=== PATIENT | male | born 1935 | race Caucasian/White ===

== ENCOUNTER → 2016-06-13 10:21 | Outpatient (CLI) | payer MEDICARE, OTHER ==
[2013-09-06 01:06] VITALS: BMI 28.5
[~2016-06-13 10:21] MED LIST: ARICEPT10 MG PO; ARICEPT5 MG PO; ATARAX 25 MG TA25 MG PO; BAYER CHEWABLE81 MG PO; CANCER MED INJ; COREG12.5 MG PO; HYZAAR 50-12.51 TAB PO; LANOXIN125 MCG PO; NAMENDA10 MG PO; NORCO 5/325 TAB1 TA1 PO; PERCOCET 5-3251 TAB PO; PROZAC10 MG PO; VITAMIN B-1000 MCG/M IM
--- NOTE | 2016-06-27 08:17 | EC ---
PATIENT:RHODA HEBERT DATE OF SERVICE: 06/13/16 SEX: M MEDICAL RECORD: [id number] DATE OF : 33 LOCATION:[facility] AGE OF PATIENT: 80 ADMISSION DATE: 06/13/16 REFERRING PHYSICIAN: INTERPRETING PHYSICIAN: TEJ BONNER M.D. ECHOCARDIOGRAM REPORT ECHO CHARGES 4 ECHO COMPLETE CLINICAL DIAGNOSIS: ASSESS FOR CARDIOMYOPATHY / DUE TO RECENT LOWER EXT EDEMA ECHOCARDIOGRAPHIC MEASUREMENTS (adult normal given) AC root (d.<3.7cm) 4.6 LV Septum d (<1.2 cm> 1.8 Valve Excursion 1.2 LV Septum (systole) 1.9 Left Atria (s.<4.0cm> 4.3 LVPW d(<1.2cm) 1.8 RV (d.<2.3cm) 4.2 LVPW (sytole) 2.1 LV diastole(<5.6CM) 5.8 MV E-F(>70mm/sec) LV systole 4.5 LVOT Diameter 1.2 MV exc.(>10mm) 1.8 Est.ejection fraction (50-75%) Pericardial Effusion N DOPPLER: LVIT A 32.0 E 109 LA RVSP 37 LVOT 111 AOP1/2T Asc. Ao 182 RVOT 91 RA PA 110 AV Gradient Peak 13.23 AV Mean 5.27 AV Area 1.1 MV Gradient Peak 6.10 MV Mean 1.95 MV Area COMMENTS: Glass Furnace Operator: Juan DALEY Decorating Instructor:2 Dr. Bonner TAPE# PACS DATE OF SERVICE: 06/13/2016 INDICATION: Cardiomyopathy. DESCRIPTION: Left ventricle is mildly dilated. Left ventricular hypertrophy is present. No wall motion abnormalities are seen. Estimated ejection fraction is 60%. Mitral valve is structurally normal. There is mild regurgitation seen. Left atrium is mildly dilated. The aortic valve leaflets are thickened. There is mild insufficiency seen, but no evidence of stenosis. Right ventricle is mildly dilated. Tricuspid valve is structurally normal. There is mild ECHOCARDIOGRAM REPORT [id number] RHODA HEBERT regurgitation noted. Right ventricular systolic pressure is elevated at 37 mmHg. There is no pericardial effusion noted. IMPRESSION: 1. Left ventricular hypertrophy with preserved ejection fraction of 60%. 2. Mild mitral regurgitation. 3. Aortic valve sclerosis without stenosis. 4. Mild aortic insufficiency. 5. Mild tricuspid regurgitation. TRANSINT:[id number] Voice Confirmation ID: [id number] DOCUMENT ID: [id number] TEJ BONNER M.D. at 0817 CC: [id number] DICTATION DATE: 06/14/16 0809 MACHINE MOLDER SQUEEZE: 06/15/16 0003 DEP CLI 06/13/16 [place] [id number] [place] [id number]
== END | disposition home or self-care (01) ==
LOC: D.ECHO 10:21
DX: I42.9 Cardiomyopathy, unspecified (principal)